=== PATIENT | female | born 1960 | race Caucasian/White ===

== ENCOUNTER → 2017-01-13 | Outpatient (REF) | payer BC ==
[2017-01-13 19:08] LABS: MEAN CORPUSCULAR HEMOGLOBIN 32.1 pg (27.0-33.0); MEAN CORPUSCULAR HGB CONC 34.5 g/dl (32.0-36.5); MEAN CORPUSCULAR VOLUME 93.2 fl (80.0-96.0); RED CELL DISTRIBUTION WIDTH 12.3 % (11.5-14.5); WHITE BLOOD COUNT 8.3 K/mm3 (4.0-10.0)
[2017-01-13 19:24] LABS: FOLATE 13.7 NG/ML
[2017-01-13 19:31] LABS: ALBUMIN 3.6 GM/DL (3.2-5.2); ALBUMIN/GLOBULIN RATIO 1.03 (1.00-1.93); ALKALINE PHOSPHATASE 100 U/L (45-117); ALT/SGPT 48 U/L (12-78); ANION GAP 7 MEQ/L (8-16); AST/SGOT 25 U/L (15-37); BILIRUBIN,TOTAL 0.3 MG/DL (0.2-1.0); BLOOD UREA NITROGEN 11 MG/DL (7-18); CALCIUM LEVEL 9.1 MG/DL (8.5-10.1); CARBON DIOXIDE LEVEL 32 MEQ/L (21-32); CHLORIDE LEVEL 104 MEQ/L (98-107); CREATININE FOR GFR 0.66 MG/DL (0.55-1.02); FREE T4 0.99 NG/DL (0.76-1.46); GLOMERULAR FILTRATION RATE > 60.0 (>51); GLUCOSE, FASTING 108 MG/DL (70-105); POTASSIUM SERUM 3.8 MEQ/L (3.5-5.1); SODIUM LEVEL 143 MEQ/L (136-145); TOTAL PROTEIN 7.1 GM/DL (6.4-8.2)
[2017-01-13 20:38] LABS: VITAMIN B12 LEVEL 1092 PG/ML
== END ==
LOC: M SFHCPLAZ 15:49
PROVIDERS: ATTEND Nurse Practitioner Family
DX: E53.8 Deficiency of other specified B group vitamins (principal); I10 Essential (primary) hypertension; E03.9 Hypothyroidism, unspecified; E55.9 Vitamin D deficiency, unspecified

== ENCOUNTER → 2017-02-23 | Outpatient (CLI) | payer BC ==
--- NOTE | 2017-02-23 12:55 | REPMRS ---
Patient History The patient states she had a clinical breast exam in 02/17 Patient is postmenopausal. Family history of colorectal cancer under age 50. Benign core biopsy of the left breast, 2009. Benign cyst aspiration of the left breast, 2003. Digital Woman Screen Mammo: February 23, 2017 - Exam #: [id number] Bilateral CC and MLO view(s) were taken. Technologist: Yocasta Elmore, Technologist Prior study comparison: January 09, 2015, digital woman screen mammo performed at [facility]. October 05, 2013, digital mammo diagnostic bilateral, performed at [facility]. April 08, 2010, bilateral screening mammogram, performed at [facility] FINDINGS: The breast tissue is heterogeneously dense. This may lower the sensitivity of mammography. There is a moderate amount of heterogeneously dense fibroglandular tissue which is fairly symmetric. There is no interval development of dominant mass, architectural distortion, or clustered microcalcification typical of malignancy. There has been no change in the appearance of the mammogram from the prior studies. ASSESSMENT: BI-RADS/ACR category 1 mammogram. Negative. Recommendation Routine screening mammogram of both breasts in 1 year (for women over age 40). This mammogram was interpreted with the aid of an FDA-approved computer-aided dectection system. Electronically Signed By: Doug Walsh MD 02/23/17 [id number]
== END ==
LOC: M WHC 10:39
PROVIDERS: ATTEND Nurse Practitioner Family
DX: Z12.31 Encounter for screening mammogram for malignant neoplasm of breast (principal); Z78.0 Asymptomatic menopausal state

== ENCOUNTER → 2017-02-23 | Outpatient (REF) | payer BC | LOC: M SFHCWAGY 13:01 | PROVIDERS: ATTEND Nurse Practitioner Family | DX: N39.46 Mixed incontinence (principal) ==

== ENCOUNTER → 2017-03-04 | Outpatient (REF) | payer BC ==
[2017-03-06 08:06] LABS: Candida species Positive (Negative); Gardnerella vaginalis Negative (Negative); Trichamonas vaginalis Negative (Negative)
== END ==
LOC: M SMT 13:11
PROVIDERS: ATTEND Specialist
DX: N76.0 Acute vaginitis (principal)

== ENCOUNTER → 2017-04-22 | Outpatient (CLI) | payer BC, MEDICAID ==
[~2017-04-22] MED LIST: BUPR300T34 PO; CHAN1PAK9 PO; DOXY100T16 PO; LEVO25TA5 PO; METO1TAB7 PO; OXYB5TAB10 PO; PANT40TA2 PO; VITA1CAP40 PO
--- NOTE | 2017-04-22 12:12 | REP ---
Thyroid ultrasound: Comparison is 08/14/2016. The patient has a right lobectomy, this is unchanged. The remaining left lobe is normal size measuring 3.9 x 2.0 x 1.8 cm. There are four left lobe nodules as follows: Mid pole 9.4 by 8.3 x 7.3 mm (previously 9.7 x 10.4 x 5.2 mm). Lower pole 1.5 x 1.9 x 1.1 cm (previously 1.6 x 0.9 x 0.9 cm). Upper pole 4.6 x 3.0 x 4.0 mm (previously 4.0 4.3 x 3.2 mm). Lower pole medially 7.3 by 5.9 x 6.3 mm (previously 3.6 x 2.7 x 2.5 mm). The lesion in the lower pole medially appears to have increased in size. The isthmus is thickened measuring 4.3 mm (4.0 mm previously). The thyroid parenchyma is mildly heterogeneous. Impression: Thyroid right lobectomy. Left lobe nodules as described. Signed by Yogesh Bonilla MD 04/22/2017 12:03 P
== END ==
LOC: M RAD 11:14
PROVIDERS: ATTEND Surgery
DX: E04.2 Nontoxic multinodular goiter (principal)

== ENCOUNTER → 2017-05-10 | Outpatient (CLI) | payer BC, MEDICAID ==
[2017-05-10 18:06] LABS: INR 0.81
[2017-05-10 18:08] LABS: MEAN CORPUSCULAR HGB CONC 34.9 g/dl (32.0-36.5); MEAN CORPUSCULAR VOLUME 91.7 fl (80.0-96.0); RED CELL DISTRIBUTION WIDTH 12.3 % (11.5-14.5); WHITE BLOOD COUNT 7.7 K/mm3 (4.0-10.0)
[2017-05-10 18:30] LABS: ANION GAP 8 MEQ/L (8-16); BLOOD UREA NITROGEN 13 MG/DL (7-18); CALCIUM LEVEL 8.6 MG/DL (8.5-10.1); CARBON DIOXIDE LEVEL 28 MEQ/L (21-32); CHLORIDE LEVEL 106 MEQ/L (98-107); CREATININE FOR GFR 0.71 MG/DL (0.55-1.02); GLOMERULAR FILTRATION RATE > 60.0 (>51); GLUCOSE, FASTING 89 MG/DL (70-105); POTASSIUM SERUM 3.8 MEQ/L (3.5-5.1); SODIUM LEVEL 142 MEQ/L (136-145)
--- NOTE | 2017-05-12 21:53 | ECGEPIP ---
Stationary ECG Study [facility] Test Date: 2017-05-10 Pat Name: ANTONIETTA MARCOS Department: Room: - Gender: F [employer]: [facility] : 1960 Requested By: JORGE Cosby Order Number: [id number] Reading MD: Reginald Herring Measurements Intervals [place] Rate: 85 P: 75 ME: 168 QRS: 17 QRSD: 88 T: 47 QT: 382 QTc: 457 Interpretive Statements SINUS RHYTHM POSSIBLE LEFT ATRIAL ENLARGEMENT NO PRIOR TRACING Electronically Signed On 05-12-2017 21:52:56 EDT by Reginald Herring
== END ==
LOC: M LAB 17:27
PROVIDERS: ATTEND Specialist
DX: N39.46 Mixed incontinence (principal); R31.29 Other microscopic hematuria; Z01.818 Encounter for other preprocedural examination

== ENCOUNTER → 2017-05-10 | Outpatient (REF) | payer BC | LOC: M SMT 13:02 | PROVIDERS: ATTEND Specialist | DX: R30.0 Dysuria (principal) ==

== ENCOUNTER 2017-05-17 11:52 | Day surgery (SDC) | payer BC, MEDICAID ==
[~2017-05-17] VITALS: Ht 162.6 cm; Wt 95.3 kg
[~2017-05-17 11:52] MED LIST changes: -DOXY100T16 PO
[2017-05-17] MEDS ORDERED: LR 1,000 ML IV ONE (12:15)
[2017-05-17] MEDS ORDERED: TRIMETHOPRIM/SULFAMETHOXAZOLE 80 MG in D5W 100 ML IV ONE (12:45)
[2017-05-17] MEDS ORDERED: DOXY100T16 PO (13:38)
[2017-05-17] MEDS ORDERED: ONDANSETRON 4MG/2ML VIAL (J2405) As Ordered ONE (15:08)
[2017-05-17] MEDS ORDERED: dexameTHASONE 4 MG/ML 1ML VIAL (J1100) As Ordered ONE (15:08)
[2017-05-17] MEDS ORDERED: PROPOFOL 200 MG/20 ML VIAL As Ordered ONE (15:08)
[2017-05-17] MEDS ORDERED: LIDOCAINE 2% INJ 100 MG/5 ML SDV (FOR ANES.) As Ordered ONE (15:08)
[2017-05-17] MEDS ORDERED: KETOROLAC 60 MG/2 ML VIAL (J1885) As Ordered ONE (15:08)
[2017-05-17] MEDS ORDERED: MIDAZOLAM INJ 2 MG/2 ML VIAL (J2250) As Ordered ONE (15:11)
[2017-05-17] MEDS ORDERED: fentaNYL 100 MCG/2 ML INJECTION (J3010) As Ordered ONE (15:11)
[2017-05-17] MEDS ORDERED: BUPIVACAINE/EPIN 0.25% 30 ML VIAL As Ordered ONE (15:26)
[2017-05-17] MEDS ORDERED: LIDOCAINE 2% 5ML JELLY UROJET As Ordered ONE (15:56)
[2017-05-17] MEDS ORDERED: BACITRACIN PWD 50,000 UNITS VIAL As Ordered ONE (16:05)
[2017-05-17] MEDS ORDERED: ONDANSETRON 4MG/2ML VIAL (J2405) IV PRN (16:45)
[2017-05-17] MEDS ORDERED: MORPHINE 2 MG/ML 1ML SYRINGE IV PRN (16:45)
[2017-05-17] MEDS ORDERED: LR 1,000 ML IV SCH (16:45)
[2017-05-17] MEDS ORDERED: PERCOCET 5MG/325MG TAB PO PRN (16:45)
[2017-05-17] MEDS ORDERED: METOCLOPRAMIDE INJ 10MG/2ML VIAL (J2765) IV PRN (16:45)
[2017-05-17] MEDS ORDERED: fentaNYL 100 MCG/2 ML INJECTION (J3010) IV PRN (16:45)
--- NOTE | 2017-05-17 18:35 | RO ---
DATE OF PROCEDURE: 05/17/2017 PREOPERATIVE DIAGNOSIS: Vaginal mesh extrusion, pain with urination, and urinary urgency and urge incontinence with mixed incontinence. POSTOPERATIVE DIAGNOSIS: Vaginal mesh extrusion, pain with urination, and urinary urgency and urge incontinence with mixed incontinence. PROCEDURE: Excision of extruded vaginal mesh, cystoscopy and hydrodistention urethral dilation. SURGEON: Dr. Christen Martinez ANESTHESIA: General. MEDICATIONS: Bactrim 80 mg intravenous (IV) preoperatively. FINDINGS: Bladder dilation showed detrusor instability with leakage and hyperemia but no significant glomerulations. INDICATIONS FOR PROCEDURE: The patient is a 57-year-old female with mesh extrusion that was felt on exam in the mid urethral area. She also has pain with urination and especially if she tried to hold her urine. She also complained of urinary urgency and urge incontinence with mixed incontinence most bothered by the urge component. After discussing all different options, alternatives, risks, and benefits it was decided to start her on Estrace and oxybutynin and to schedule her for a excision of the extruded mesh, cystoscopy and hydrodistention with the urethral dilation. All different options, alternatives, risks, and benefits were discussed and informed consent was obtained in both verbal and written form. The patient was brought into the operating room. Sequential compression devices were in place and she was given Bactrim DS preoperatively. General anesthesia was induced. She was then placed in the lithotomy position and careful attention was paid that her pressure points were well padded and protected. She was prepped and draped in the usual fashion. Next, a Buda retractor was placed and the mesh material was felt extruding underneath the mid urethra. 0.25% Marcaine with epinephrine was injected in the mid urethral area and then a midline incision was made. The mesh was felt and this area was excised with some of the skin. About a 1 inch piece of mesh was removed. The lateral mesh was left in place in order to give support for a leakage with stress maneuvers. At this point no more mesh was felt coming through the vaginal mucosa. Antibiotic irrigation was utilized and vaginal mucosa was then re-closed using a running locking #2-0 chromic suture. Next, a 21-Ukrainian cystoscope was inserted. The urethra was noted to be open without any evidence of lesions or strictures. At this point a hydrodistention was done and at about 750 mL, she started to have significant detrusor instability with leakage. I did try to keep her filled for approximately 10 minutes under gravity drainage. When i emptied the bladder there was hyperemia but no significant glomerulations. Next three urethra was dilated to a 30-Ukrainian then 2% lidocaine with 2% lidocaine jelly was placed in the urethra for postoperative discomfort. The patient was returned to the recovery room in stable condition.
== END 2017-05-17 18:15 | disposition home or self-care (01) ==
LOC: M SDC 11:52
PROVIDERS: ATTEND Specialist
DX: T83.711A Erosion of implanted vaginal mesh to surrounding organ or tissue, initial encounter (principal); R30.9 Painful micturition, unspecified; R39.15 Urgency of urination; I10 Essential (primary) hypertension; E03.9 Hypothyroidism, unspecified; K21.9 Gastro-esophageal reflux disease without esophagitis; F41.9 Anxiety disorder, unspecified; F32.9 Major depressive disorder, single episode, unspecified; F17.210 Nicotine dependence, cigarettes, uncomplicated; Z88.0 Allergy status to penicillin; Z79.899 Other long term (current) drug therapy
CPT/HCPCS: 57287; 57295; J1100; J1885; J2405; J3010

== ENCOUNTER → 2017-06-29 | Outpatient (REF) | payer BC ==
[~2017-06-29] MED LIST changes: +DOXY100T16 PO
[2017-06-29 14:43] LABS: BACTERIA, URINE SMALL AMOUNT; HYALINE CAST, URINE NONE SEEN /lpf (0-1); SQUAMOUS EPITHELIAL CELL URINE SMALL AMOUNT /hpf (SMALL AMT); WBC, URINE 15-20 /hpf (0-3)
[2017-06-29 14:44] LABS: MICROSCOPIC EXAM PERFORMED
[2017-07-02 00:08] LABS: Candida species Negative (Negative); Gardnerella vaginalis Negative (Negative); Trichamonas vaginalis Negative (Negative)
== END ==
LOC: M SMT 13:19
PROVIDERS: ATTEND Specialist
DX: R30.0 Dysuria (principal); N95.2 Postmenopausal atrophic vaginitis

== ENCOUNTER → 2017-07-21 | Outpatient (REF) | payer BC ==
[2017-07-21 13:52] LABS: BACTERIA, URINE SMALL AMOUNT; HYALINE CAST, URINE NONE SEEN /lpf (0-1); MICROSCOPIC EXAM PERFORMED; RBC, URINE NONE SEEN /hpf (0-3); SQUAMOUS EPITHELIAL CELL URINE MOD AMOUNT /hpf (SMALL AMT)
== END ==
LOC: M SMT 13:09
PROVIDERS: ATTEND Specialist
DX: R39.89 Other symptoms and signs involving the genitourinary system (principal)

== ENCOUNTER → 2017-07-27 | Outpatient (REF) | payer BC, MEDICAID ==
[2017-07-27 20:20] LABS: FOLATE 15.7 NG/ML; VITAMIN B12 LEVEL 936 PG/ML
[2017-07-27 20:25] LABS: ALBUMIN 3.8 GM/DL (3.2-5.2); ALBUMIN/GLOBULIN RATIO 1.03 (1.00-1.93); ALKALINE PHOSPHATASE 118 U/L (45-117); ALT/SGPT 40 U/L (12-78); ANION GAP 8 MEQ/L (8-16); AST/SGOT 17 U/L (15-37); BILIRUBIN,TOTAL 0.3 MG/DL (0.2-1.0); BLOOD UREA NITROGEN 14 MG/DL (7-18); CALCIUM LEVEL 8.9 MG/DL (8.5-10.1); CARBON DIOXIDE LEVEL 28 MEQ/L (21-32); CHLORIDE LEVEL 105 MEQ/L (98-107); CREATININE FOR GFR 0.92 MG/DL (0.55-1.02); FREE T4 1.01 NG/DL (0.76-1.46); GLOMERULAR FILTRATION RATE > 60.0 (>51); GLUCOSE, FASTING 112 MG/DL (70-105); POTASSIUM SERUM 3.9 MEQ/L (3.5-5.1); SODIUM LEVEL 141 MEQ/L (136-145); TOTAL PROTEIN 7.5 GM/DL (6.4-8.2)
== END ==
LOC: M SFHCPLAZ 15:23
PROVIDERS: ATTEND Nurse Practitioner Family
DX: I10 Essential (primary) hypertension (principal); E03.9 Hypothyroidism, unspecified; E55.9 Vitamin D deficiency, unspecified; E53.8 Deficiency of other specified B group vitamins

== ENCOUNTER → 2017-11-17 | Outpatient (CLI) | payer BC, MEDICAID | LOC: M RAD 08:42 | DX: F17.210 Nicotine dependence, cigarettes, uncomplicated (principal) ==

== ENCOUNTER → 2017-12-05 | Outpatient (CLI) | payer BC, MEDICAID ==
[2017-12-05 12:37] LABS: ALBUMIN 3.6 GM/DL (3.2-5.2); ALBUMIN/GLOBULIN RATIO 1.06 (1.00-1.93); ALKALINE PHOSPHATASE 111 U/L (45-117); ALT/SGPT 32 U/L (12-78); ANION GAP 5 MEQ/L (8-16); AST/SGOT 14 U/L (7-37); BILIRUBIN,TOTAL 0.4 MG/DL (0.2-1.0); BLOOD UREA NITROGEN 12 MG/DL (7-18); CALCIUM LEVEL 8.4 MG/DL (8.5-10.1); CARBON DIOXIDE LEVEL 31 MEQ/L (21-32); CHLORIDE LEVEL 105 MEQ/L (98-107); CREATININE FOR GFR 0.67 MG/DL (0.55-1.30); FREE T4 0.97 NG/DL (0.76-1.46); GLOMERULAR FILTRATION RATE > 60.0 (>51); GLUCOSE, FASTING 126 MG/DL (70-100); POTASSIUM SERUM 4.1 MEQ/L (3.5-5.1); SODIUM LEVEL 141 MEQ/L (136-145)
[2017-12-06 12:05] LABS: TOTAL 25(OH) VITAMIN D 43.5 NG/ML (30.0-100.0); VITAMIN B12 LEVEL 365 PG/ML (247-911)
[2017-12-06 12:06] LABS: FOLATE 17.3 NG/ML (>5.4)
== END ==
LOC: M LAB 11:33
DX: I10 Essential (primary) hypertension (principal); E03.9 Hypothyroidism, unspecified; E55.9 Vitamin D deficiency, unspecified; E53.8 Deficiency of other specified B group vitamins
CPT/HCPCS: 82746

== ENCOUNTER → 2018-03-23 | Outpatient (CLI) | payer BC, MEDICAID ==
[2018-03-23 13:21] LABS: ALBUMIN 3.5 GM/DL (3.2-5.2); ALBUMIN/GLOBULIN RATIO 0.92 (1.00-1.93); ALKALINE PHOSPHATASE 102 U/L (45-117); ALT/SGPT 42 U/L (12-78); ANION GAP 8 MEQ/L (8-16); AST/SGOT 22 U/L (7-37); BILIRUBIN,TOTAL 0.5 MG/DL (0.2-1.0); BLOOD UREA NITROGEN 14 MG/DL (7-18); CALCIUM LEVEL 8.7 MG/DL (8.5-10.1); CARBON DIOXIDE LEVEL 30 MEQ/L (21-32); CHLORIDE LEVEL 104 MEQ/L (98-107); CHOLESTEROL LEVEL 204 MG/DL (<200); CREATININE FOR GFR 0.67 MG/DL (0.55-1.30); FREE T4 0.95 NG/DL (0.76-1.46); GLOMERULAR FILTRATION RATE > 60.0 (>51); GLUCOSE, FASTING 122 MG/DL (70-100); HDL CHOLESTEROL 34 MG/DL (>40); LDL CHOLESTEROL 105.8 MG/DL (<100); NON-HDL-C 170 MG/DL; POTASSIUM SERUM 4.2 MEQ/L (3.5-5.1); SODIUM LEVEL 142 MEQ/L (136-145); TOTAL PROTEIN 7.3 GM/DL (6.4-8.2); TRIGLYCERIDES LEVEL 321 MG/DL (<150)
== END ==
LOC: M WUC 08:32
DX: I10 Essential (primary) hypertension (principal); E03.9 Hypothyroidism, unspecified

== ENCOUNTER → 2018-04-19 | Outpatient (CLI) | payer BC, MEDICAID | LOC: M RAD 11:05 | DX: E04.2 Nontoxic multinodular goiter (principal) | CPT/HCPCS: 76536 ==

== ENCOUNTER → 2018-07-07 | Outpatient (CLI) | payer BC, OTHER | LOC: M WHC 13:39 | DX: Z12.31 Encounter for screening mammogram for malignant neoplasm of breast (principal); N60.31 Fibrosclerosis of right breast; N60.32 Fibrosclerosis of left breast | CPT/HCPCS: 77067 ==

== ENCOUNTER → 2018-07-07 | Outpatient (REF) | payer BC, OTHER ==
[2018-07-09 15:28] LABS: HPV HYBRID CAPTURE II Negative (Negative)
== END ==
LOC: M SFHCWAGY 15:00
DX: Z12.72 Encounter for screening for malignant neoplasm of vagina (principal)
CPT/HCPCS: G0123

== ENCOUNTER → 2018-09-14 | Outpatient (CLI) | payer OTHER, BC ==
[2018-09-14 18:23] LABS: ALBUMIN 3.4 GM/DL (3.2-5.2); ALBUMIN/GLOBULIN RATIO 0.89 (1.00-1.93); ALKALINE PHOSPHATASE 113 U/L (45-117); ALT/SGPT 40 U/L (12-78); ANION GAP 6 MEQ/L (8-16); AST/SGOT 17 U/L (7-37); BILIRUBIN,TOTAL 0.3 MG/DL (0.2-1.0); BLOOD UREA NITROGEN 15 MG/DL (7-18); CALCIUM LEVEL 8.8 MG/DL (8.5-10.1); CARBON DIOXIDE LEVEL 30 MEQ/L (21-32); CHLORIDE LEVEL 106 MEQ/L (98-107); CREATININE FOR GFR 0.72 MG/DL (0.55-1.30); GLOMERULAR FILTRATION RATE > 60.0 (>51); GLUCOSE, FASTING 120 MG/DL (70-100); POTASSIUM SERUM 3.7 MEQ/L (3.5-5.1); SODIUM LEVEL 142 MEQ/L (136-145); TOTAL 25(OH) VITAMIN D 45.9 NG/ML (30.0-100.0); TOTAL PROTEIN 7.2 GM/DL (6.4-8.2)
[2018-09-14 19:03] LABS: ESTIMATED AVERAGE GLUCOSE 117 MG/DL (60-110); HEMOGLOBIN A1c 5.7 %
== END ==
LOC: M LAB 17:21
DX: I10 Essential (primary) hypertension (principal); E03.9 Hypothyroidism, unspecified; E88.81 Metabolic syndrome and other insulin resistance; E55.9 Vitamin D deficiency, unspecified
CPT/HCPCS: 84443

== ENCOUNTER 2018-11-01 06:50 | Day surgery (SDC) | payer BC, OTHER ==
[~2018-11-01] VITALS: Ht 162.6 cm; Wt 94.8 kg
[~2018-11-01 06:50] MED LIST changes: +BACT800T5 PO; +BUPR150T3 PO; +CALC600T31 PO; +CHAN1PAK13 PO; -CHAN1PAK9 PO; +MULT1TAB10 PO; -PANT40TA2 PO; +PANT40TA3 PO; +RANI150T PO; +VITA100067 PO; -VITA1CAP40 PO; +VITA1TAB22 PO; +VITA50005 PO
[2018-11-01] MEDS ORDERED: PROPOFOL 200 MG/20 ML VIAL As Ordered ONE ×2 (07:13→08:17)
[2018-11-01] MEDS ORDERED: LIDOCAINE 2% INJ 100 MG/5 ML SDV (FOR ANES.) As Ordered ONE (07:13)
--- NOTE | 2018-11-01 08:27 | ROOR ---
Patient Name: Salena Carlin Procedure Date: 11/01/2018 8:06 AM Date of : 1960 Age: 58 Room: [id number] Gender: Female Note Status: Finalized Procedure: Colonoscopy Indications: Screening for colorectal malignant neoplasm, inadequate bowel prep on last colonoscopy (more recent than 10 years ago), High risk colon cancer surveillance: Personal history of colonic polyps Providers: Binh JIANG MD Referring MD: Zaynab Gilbert NP Requesting Provider: Medicines: Monitored Anesthesia Care Complications: No immediate complications. Procedure: Pre-Anesthesia Assessment: - The heart rate, respiratory rate, oxygen saturations, blood pressure, adequacy of pulmonary ventilation, and response to care were monitored throughout the procedure. The Colonoscope was introduced through the anus and advanced to the terminal ileum, with identification of the appendiceal orifice and IC valve. The colonoscopy was performed without difficulty. The patient tolerated the procedure well. The quality of the bowel preparation was fair. Findings: The perianal and digital rectal examinations were normal. A 5 mm polyp was found in the sigmoid colon. The polyp was sessile. The polyp was removed with a cold snare. Resection and retrieval were complete. Small Internal Hemorrhoids. The exam was otherwise without abnormality on direct and retroflexion views. Impression: - Preparation of the colon was fair. - One 5 mm polyp in the sigmoid colon, removed with a cold snare. Resected and retrieved. - Small Internal Hemorrhoids. - The examination was otherwise normal on direct and retroflexion views. Recommendation: - Repeat colonoscopy in 5 years for surveillance. (Recommend additional prep with next colonoscopy.) Binh Jiang MD Binh JIANG MD 11/01/2018 8:26:48 AM This report has been signed electronically. Number of Addenda: 0 Note Initiated On: 11/01/2018 8:06 AM Estimated Blood Loss: Estimated blood loss: none.
[2018-11-01 08:50] VITALS: BP 210/95
== END 2018-11-01 08:53 | disposition home or self-care (01) ==
LOC: M OPP 06:50
PROVIDERS: ATTEND Internal Medicine Gastroenterology
DX: Z12.11 Encounter for screening for malignant neoplasm of colon (principal); Z86.010 Personal history of colon polyps; D12.5 Benign neoplasm of sigmoid colon; Z79.899 Other long term (current) drug therapy; Z88.0 Allergy status to penicillin; Z88.5 Allergy status to narcotic agent; F17.210 Nicotine dependence, cigarettes, uncomplicated

== ENCOUNTER → 2018-11-21 | Outpatient (CLI) | payer BC, OTHER ==
[2018-11-21 18:15] LABS: FREE T4 0.98 NG/DL (0.76-1.46); THYROID STIMULATING HORMONE 2.32 uIU/ML (0.358-3.740)
== END ==
LOC: M LAB 16:14
PROVIDERS: ATTEND Nurse Practitioner Family
DX: E03.9 Hypothyroidism, unspecified (principal)

== ENCOUNTER → 2018-12-25 | Outpatient (CLI) | payer BC, OTHER ==
--- NOTE | 2018-12-26 07:21 | REP ---
CERVICAL SPINE SERIES: Full cervical spine series was performed. C7 vertebral body is not optimally visualized due to high riding shoulders. It is grossly normal in height. The other cervical vertebral bodies are normal in height and are well aligned with normal cervical lordosis. There is no prevertebral soft tissue swelling. The disc spaces are well preserved. Metallic clips are seen in the right neck. I see no radiographic evidence of significant neural foraminal narrowing. IMPRESSION: Grossly unremarkable cervical spine series. Electronically Signed by Yogesh Avila MD 12/26/2018 09:24 A
--- NOTE | 2018-12-26 07:24 | REP ---
RIGHT SHOULDER, THREE VIEWS: There is no evidence of an acute fracture, dislocation or intrinsic bone disease. Joint spaces appear unremarkable. IMPRESSION: No fracture or dislocation. Electronically Signed by Yogesh Avila MD 12/26/2018 09:38 A
--- NOTE | 2018-12-26 07:25 | REP ---
LUMBOSACRAL SPINE: Seven views of lumbosacral spine are performed including lateral flexion and extension views. There is no fracture or dislocation. There is normal lumbar lordosis and alignment with no spondylolysis or spondylolisthesis. No subluxation is seen with flexion or extension. There is mild diffuse spurring. There is mild disc space narrowing at L5-S1 with sclerosis at the posterior facet joints at that level. The posterior elements are intact. IMPRESSION: Mild degenerative changes L5-S1. Electronically Signed by Yogesh Avila MD 12/26/2018 09:38 A
== END ==
LOC: M RAD 14:13
PROVIDERS: ATTEND Nurse Practitioner Family
DX: M51.87 Other intervertebral disc disorders, lumbosacral region (principal); M25.511 Pain in right shoulder; M54.2 Cervicalgia; M54.5 Low back pain

== ENCOUNTER 2019-01-13 07:29 | Outpatient (RCR) | payer BC, OTHER ==
[~2019-01-13 07:29] MED LIST changes: +CYAN100T5 PO; -VITA1TAB22 PO
== END 2019-01-31 ==
LOC: M PT 07:29
PROVIDERS: ATTEND Nurse Practitioner Family
DX: M54.2 Cervicalgia (principal)

== ENCOUNTER → 2019-04-05 | Outpatient (CLI) | payer BC, OTHER ==
[2019-04-05 08:37] LABS: BLOOD UREA NITROGEN 13 MG/DL (7-18); CALCIUM LEVEL 9.1 MG/DL (8.5-10.1); CARBON DIOXIDE LEVEL 31 MEQ/L (21-32); CHLORIDE LEVEL 107 MEQ/L (98-107); CHOLESTEROL LEVEL 178 MG/DL (<200); CHOLESTEROL RISK RATIO 6.357 (<5); CREATININE FOR GFR 0.69 MG/DL (0.55-1.30); FREE T4 0.98 NG/DL (0.76-1.46); GLOMERULAR FILTRATION RATE > 60.0 (>51); GLUCOSE, FASTING 115 MG/DL (70-100); HDL CHOLESTEROL 28 MG/DL (>40); LDL CHOLESTEROL 75 MG/DL (<100); NON-HDL-C 150 MG/DL; POTASSIUM SERUM 4.2 MEQ/L (3.5-5.1); SODIUM LEVEL 141 MEQ/L (136-145); TRIGLYCERIDES LEVEL 375 MG/DL (<150)
[2019-04-05 09:53] LABS: TOTAL 25(OH) VITAMIN D 48.2 NG/ML (30.0-100.0)
[2019-04-05 10:25] LABS: HEMOGLOBIN A1c 6.3 %
== END ==
LOC: M LAB 07:29
PROVIDERS: ATTEND Nurse Practitioner Family
DX: E03.9 Hypothyroidism, unspecified (principal); E88.81 Metabolic syndrome and other insulin resistance; E78.2 Mixed hyperlipidemia; I10 Essential (primary) hypertension; E55.9 Vitamin D deficiency, unspecified

== ENCOUNTER → 2019-07-10 | Outpatient (CLI) | payer BC, OTHER ==
--- NOTE | 2019-07-10 15:01 | REPMRS ---
Patient History The patient states she had a clinical breast exam in 07/2019. Patient is postmenopausal. Family history of prostate cancer at age 50 or over in brother. Benign core biopsy of the left breast, 2008. Benign core biopsy of the left breast, June 10, 2006. Cyst aspiration of the left breast, May 23, 2006. Benign core biopsy of the left breast, May 23, 2006. Benign cyst aspiration of the left breast, 2003. No Hormone Replacement Therapy 3D TOMOSYNTHESIS WAS PERFORMED. The [facility] [address] lifetime risk for breast cancer is 6.6%. Digital Woman Screen Mammo: July 10, 2019 - Exam #: [id number] Bilateral CC and MLO view(s) were taken. Technologist: Yocasta Elmore, Technologist Prior study comparison: July 07, 2018, bilateral digital woman screen mammo performed at [facility]. February 23, 2017, digital woman screen mammo performed at [facility]. FINDINGS: The breast tissue is heterogeneously dense. This may lower the sensitivity of mammography. There has been no change in the appearance of the mammogram from the prior studies. There is a moderate amount of residual fibroglandular tissue which is fairly symmetric. There is no interval development of dominant mass, areas of architectural distortion, or clustered microcalcification typical of malignancy. Assessment: BI-RADS/ACR category 1 mammogram. Negative Mammogram. Recommendation Routine screening mammogram in 1 year (for women over age 40). This mammogram was interpreted with the aid of an FDA-approved computer-aided dectection system. Electronically Signed By: Yogesh Avila MD 07/10/19 Krys
== END ==
LOC: M WHC 13:19
PROVIDERS: ATTEND Nurse Practitioner Family
DX: Z12.31 Encounter for screening mammogram for malignant neoplasm of breast (principal)

== ENCOUNTER → 2019-08-03 | Outpatient (CLI) | payer BC, OTHER ==
[~2019-08-03] MED LIST changes: -DOXY100T16 PO; +DOXY100T27 PO
[2019-08-03 09:25] LABS: ALBUMIN 3.7 GM/DL (3.2-5.2); ALT/SGPT 39 U/L (12-78); BILIRUBIN,TOTAL 0.5 MG/DL (0.2-1.0); BLOOD UREA NITROGEN 14 MG/DL (7-18); CALCIUM LEVEL 9.2 MG/DL (8.5-10.1); CARBON DIOXIDE LEVEL 31 MEQ/L (21-32); CHLORIDE LEVEL 105 MEQ/L (98-107); CHOLESTEROL LEVEL 204 MG/DL (<200); CREATININE FOR GFR 0.69 MG/DL (0.55-1.30); FREE T4 0.97 NG/DL (0.76-1.46); GLOMERULAR FILTRATION RATE > 60.0 (>51); GLUCOSE, FASTING 114 MG/DL (70-100); HDL CHOLESTEROL 34 MG/DL (>40); LDL CHOLESTEROL 92 MG/DL (<100); NON-HDL-C 170 MG/DL; POTASSIUM SERUM 4.3 MEQ/L (3.5-5.1); SODIUM LEVEL 141 MEQ/L (136-145); TOTAL PROTEIN 7.7 GM/DL (6.4-8.2); TRIGLYCERIDES LEVEL 392 MG/DL (<150)
[2019-08-03 09:28] LABS: MALB URINE SIEMENS 26.8 MG/L; MAU/CREAT RATIO 15.7 MCG/MG (0.0-30.0)
[2019-08-03 09:45] LABS: HEMOGLOBIN A1c 5.9 %
== END ==
LOC: M LAB 07:32
PROVIDERS: ATTEND Nurse Practitioner Family
DX: E78.2 Mixed hyperlipidemia (principal); E03.9 Hypothyroidism, unspecified; R73.03 Prediabetes

== ENCOUNTER → 2019-08-23 | Outpatient (CLI) | payer BC, OTHER ==
--- NOTE | 2019-08-24 10:52 | REP ---
CHEST CT WITHOUT CONTRAST: HISTORY: Low dose screening exam. Nicotine dependence. Comparison screening CT study November 17, 2017. CT FINDINGS: The previously noted left upper lobe nodule is again seen. On today's study it measures 5 mm in greatest diameter. November 17, 2017 prior study measurement was 3 mm. It appears to have enlarged somewhat. No other pulmonary nodule is appreciated. Study is otherwise unremarkable. IMPRESSION: 5 mm nodule left upper lobe, increased in size from the prior study when it measured 3 mm. Lung BIRADS category 4A. 5-hh-5-month followup CT study suggested. Electronically Signed by Jonnie Walsh MD 08/24/2019 11:33 A
== END ==
LOC: M RAD 16:26
PROVIDERS: ATTEND Nurse Practitioner Family
DX: Z12.2 Encounter for screening for malignant neoplasm of respiratory organs (principal); F17.210 Nicotine dependence, cigarettes, uncomplicated; R91.1 Solitary pulmonary nodule

== ENCOUNTER → 2019-11-17 | Outpatient (CLI) | payer OTHER ==
[~2019-11-17] MED LIST changes: -BUPR300T34 PO; +BUPR300T92 PO
--- NOTE | 2019-11-17 15:24 | REP ---
Clinical: Pulmonary nodule. Technique: Axial noncontrast images from the thoracic inlet to the upper abdomen with coronal and sagittal re-formations. Comparison: 08/23/2019, 11/17/2017. Findings: 5 mm noncalcified nodule in the anterior left upper lobe remains stable when compared to 08/23/2019, but may be slightly increased when compared to 11/17/2017. New area of presumed atelectasis in the right middle lobe. Underlying chronic stable changes. No new nodule. No effusion. No pneumothorax. Tracheobronchial tree is patent. No obvious adenopathy. Mediastinum demonstrates stable atherosclerotic changes to the thoracic aorta and coronary arteries without aortic aneurysm or cardiomegaly. No pericardial effusion. Skeletal structures without focal osseous abnormality. Impression: 1. Noncalcified nodule in the left upper lobe measures 5 mm and may be minimally increased when compared to 2017. 2. New area of suspected atelectasis in the right middle lobe should be correlated with physical examination and auscultation. Electronically Signed by Jethro Meadows MD 11/17/2019 03:16 P
== END ==
LOC: M RAD 14:37
PROVIDERS: ATTEND Nurse Practitioner Family
DX: R91.1 Solitary pulmonary nodule (principal)

== ENCOUNTER → 2019-11-18 | Outpatient (CLI) | payer OTHER ==
[2019-11-18 10:57] LABS: HEMOGLOBIN A1c 6.1 %
[2019-11-18 11:18] LABS: ALBUMIN 3.6 GM/DL (3.2-5.2); ALT/SGPT 37 U/L (12-78); BILIRUBIN,TOTAL 0.3 MG/DL (0.2-1.0); BLOOD UREA NITROGEN 11 MG/DL (7-18); CALCIUM LEVEL 8.9 MG/DL (8.5-10.1); CARBON DIOXIDE LEVEL 34 MEQ/L (21-32); CHLORIDE LEVEL 105 MEQ/L (98-107); CHOLESTEROL LEVEL 134 MG/DL (<200); CHOLESTEROL RISK RATIO 5.153 (<5); CREATININE FOR GFR 0.67 MG/DL (0.55-1.30); GLOMERULAR FILTRATION RATE > 60.0 (>51); GLUCOSE, FASTING 100 MG/DL (70-100); HDL CHOLESTEROL 26 MG/DL (>40); LDL CHOLESTEROL 66 MG/DL (<100); NON-HDL-C 108 MG/DL; POTASSIUM SERUM 4.2 MEQ/L (3.5-5.1); SODIUM LEVEL 142 MEQ/L (136-145); TOTAL PROTEIN 7.3 GM/DL (6.4-8.2); TRIGLYCERIDES LEVEL 209 MG/DL (<150)
[2019-11-18 11:19] LABS: MALB URINE SIEMENS 11.3 MG/L; MAU/CREAT RATIO 9.7 MCG/MG (0.0-30.0)
== END ==
LOC: M LAB 09:36
PROVIDERS: ATTEND Nurse Practitioner Family
DX: I10 Essential (primary) hypertension (principal); E78.2 Mixed hyperlipidemia; E03.9 Hypothyroidism, unspecified; R73.03 Prediabetes

== ENCOUNTER → 2019-12-21 | Outpatient (CLI) | payer OTHER ==
--- NOTE | 2019-12-26 15:59 | SLEEPCENT ---
DATE OF PROCEDURE: 12/21/2019 ORDERED BY: Binh Lozano DO Nocturnal polysomnography was performed for evaluation of sleep physiology in this patient with a history of excessive daytime somnolence and abnormal nocturnal recording oximetry tracing who has comorbidities of hypertension. 7 hours and 30 minutes of data were reviewed. There were 384.5 minutes of sleep identified. Sleep latency was mildly prolonged at 19.5 minutes. Rapid eye movement (REM) latency also mildly prolonged at 105 minutes. Sleep architecture was fair with fragmentation early in the study. There were 4 REM cycles noted. Overall sleep efficiency was 86.5%. The patient's electrocardiogram showed a sinus rhythm with an average heart rate of 90 beats per minute. Electroencephalogram (EEG) showed normal waveforms for awake and sleep. There were 64 respiratory events identified of 10 seconds in duration or greater for an apnea-hypopnea index of 10. The events were primarily obstructive not exclusive to sleep stage nor body posture. Arousals from respiratory events occurred 10.5 times per hour and oxygen desaturations were seen to 69%. There was some activity in the limb leads. No trains of events. Limb movement arousal index 5.5. IMPRESSION: Obstructive sleep apnea syndrome (G47.33). Apnea-hypopnea index 10. RECOMMENDATIONS: The patient should be encouraged to return to the sleep disorder center for pressure therapy. In the interim, alcohol and sedative avoidance should be practiced and caution exercised during operation of motor vehicles.
== END ==
LOC: M SLEEP 19:39
PROVIDERS: ATTEND Internal Medicine Pulmonary Disease
DX: G47.30 Sleep apnea, unspecified (principal)

== ENCOUNTER → 2020-02-06 | Outpatient (REF) | payer OTHER ==
[2020-02-06 16:08] LABS: HEMOGLOBIN A1c 6.1 %
[2020-02-06 16:33] LABS: BLOOD UREA NITROGEN 14 MG/DL (7-18); CALCIUM LEVEL 9.6 MG/DL (8.5-10.1); CARBON DIOXIDE LEVEL 31 MEQ/L (21-32); CHLORIDE LEVEL 104 MEQ/L (98-107); CREATININE FOR GFR 0.64 MG/DL (0.55-1.30); FREE T4 1.07 NG/DL (0.76-1.46); GLOMERULAR FILTRATION RATE > 60.0 (>51); GLUCOSE, FASTING 113 MG/DL (70-100); SODIUM LEVEL 139 MEQ/L (136-145)
== END ==
LOC: M PLALAB 15:29
PROVIDERS: ATTEND Nurse Practitioner Family
DX: E03.9 Hypothyroidism, unspecified (principal); R73.03 Prediabetes; I10 Essential (primary) hypertension

== ENCOUNTER → 2020-07-18 | Outpatient (REF) | payer OTHER ==
[~2020-07-18] MED LIST changes: +CYAN100T4 PO; -CYAN100T5 PO; +PANT40TA29 PO; -PANT40TA3 PO
[2020-07-18 14:24] LABS: ALBUMIN 3.6 GM/DL (3.2-5.2); ALT/SGPT 43 U/L (12-78); BILIRUBIN,TOTAL 0.6 MG/DL (0.2-1.0); BLOOD UREA NITROGEN 15 MG/DL (7-18); CALCIUM LEVEL 9.4 MG/DL (8.5-10.1); CARBON DIOXIDE LEVEL 31 MEQ/L (21-32); CHLORIDE LEVEL 108 MEQ/L (98-107); CHOLESTEROL LEVEL 147 MG/DL (<200); CHOLESTEROL RISK RATIO 4.593 (<5); CREATININE FOR GFR 0.77 MG/DL (0.55-1.30); FREE T4 1.03 NG/DL (0.76-1.46); GLOMERULAR FILTRATION RATE > 60.0 (>51); GLUCOSE, FASTING 108 MG/DL (70-100); HDL CHOLESTEROL 32 MG/DL (>40); LDL CHOLESTEROL 72 MG/DL (<100); NON-HDL-C 115 MG/DL; POTASSIUM SERUM 4.5 MEQ/L (3.5-5.1); SODIUM LEVEL 141 MEQ/L (136-145); TOTAL PROTEIN 7.4 GM/DL (6.4-8.2); TRIGLYCERIDES LEVEL 215 MG/DL (<150)
[2020-07-18 14:32] LABS: HEMOGLOBIN A1c 5.6 %
[2020-07-18 15:03] LABS: MALB URINE SIEMENS 25.4 MG/L; MAU/CREAT RATIO 16.7 MCG/MG (0.0-30.0)
[2020-07-18 16:10] LABS: TOTAL 25(OH) VITAMIN D 53.4 NG/ML (30.0-100.0)
== END ==
LOC: M PLALAB 09:15
PROVIDERS: ATTEND Nurse Practitioner Family
DX: I10 Essential (primary) hypertension (principal); E03.9 Hypothyroidism, unspecified; R73.03 Prediabetes; E78.2 Mixed hyperlipidemia; E55.9 Vitamin D deficiency, unspecified

== ENCOUNTER → 2020-07-22 | Outpatient (CLI) | payer OTHER ==
--- NOTE | 2020-07-22 15:28 | REP ---
INDICATION: OTHER NON SPECIFIC ABNORMAL FINDING OF LUNG FIELD.. COMPARISON: And 11/07/2013. TECHNIQUE: One hundred twenty-eight slice low dose helical CT scanning was obtained throughout the thorax without intravenous contrast along with sagittal and coronal reconstructions. FINDINGS: The mediastinum and pulmonary domingo are unchanged. There is no mass or adenopathy. There are no pleural or pericardial effusions. There is no change in the appearance of the imaged upper abdomen. There is cholelithiasis. There is diffuse fatty infiltration of the liver. Bone window technique throughout the examination shows the osseous structures to be stable and intact. Evaluation of the lung jim shows no change in the 5 mm size left upper lobe nodule. The patchy opacities seen previously in the right Middle lobe have cleared. No new abnormal nodules, masses, or opacities have developed. IMPRESSION: 1. Resolved right middle lobe patchy opacities. 2. Stable left upper lobe 5 mm sized nodule. 3. Lung rads category 2 exam 4. Fatty infiltration of the liver. 5. Cholelithiasis. <Electronically signed by Pierre Hernandez > 07/22/20 [id number]
== END ==
LOC: M RAD 14:08
PROVIDERS: ATTEND Internal Medicine Pulmonary Disease
DX: R91.8 Other nonspecific abnormal finding of lung field (principal)

== ENCOUNTER → 2020-11-27 | Outpatient (CLI) | payer OTHER ==
[~2020-11-27] MED LIST changes: -BUPR150T3 PO; +BUPR150T4 PO
--- NOTE | 2020-11-27 11:23 | REP ---
INDICATION: NICOTINE DEPENDENCE. COMPARISON: CT 11/17/2019, 07/22/2020, 08/23/2019. TECHNIQUE: Low-dose lung CT screening protocol with 3 mm slice thickness in lung window settings reviewed. FINDINGS: There is a 4.4 mm nodule posteriorly in the left upper lung zone as seen on previous studies. I believe it is in the superior segment of the left lower lobe and is grossly unchanged for 15 months. Is a 5 mm nodule anteriorly in the left upper lobe on image 17 in this is unchanged. No calcification associated with it. See no other left lung nodules, pleural thickening, calcified pleural plaque or effusions. The right lung is without an acute infiltrate or pulmonary nodule. No pleural thickening, pleural plaque/calcification or acute infiltrate. No bronchiectasis. IMPRESSION: Lung rads category 2 benign, benign finding on examination. Patients with this category of finding have less than 1% chance of malignancy at the time of the examination. Recommend annual lung screening CT for patients at higher risk of lung malignancy. <Electronically signed by Tk Preston > 11/27/20 [id number]
== END ==
LOC: M RAD 10:11
PROVIDERS: ATTEND Nurse Practitioner Family
DX: Z12.2 Encounter for screening for malignant neoplasm of respiratory organs (principal); F17.210 Nicotine dependence, cigarettes, uncomplicated

== ENCOUNTER → 2020-12-27 | Outpatient (CLI) | payer OTHER ==
[~2020-12-27] MED LIST changes: +BUPR150T12 PO; -BUPR150T4 PO
--- NOTE | 2020-12-27 16:34 | REPMRS ---
Patient History The patient states she had a clinical breast exam in August 2020. Family history of prostate cancer at age 50 or over in brother. Benign core biopsy of the left breast, 2008. Benign core biopsy of the left breast, June 10, 2006. Cyst aspiration of the left breast, May 23, 2006. Benign core biopsy of the left breast, May 23, 2006. Benign cyst aspiration of the left breast, 2003. No Hormone Replacement Therapy Digital Woman Screen Mammo: December 27, 2020 - Exam #: [id number] Bilateral CC and MLO view(s) were taken. Technologist: Lisa Solano Technologist Prior study comparison: July 10, 2019, bilateral digital woman screen mammo performed at [facility]. July 07, 2018, bilateral digital woman screen mammo performed at [facility]. February 23, 2017, digital woman screen mammo performed at [facility]. FINDINGS: There are scattered fibroglandular densities. The Volpara volumetric breast density category is:B. There has been no change in the appearance of the mammogram from the prior studies. There is a mild amount of scattered fibroglandular density which is fairly symmetric. There is no interval development of dominant mass, architectural distortion, or grouped microcalcification suggestive of malignancy. 3-D tomosynthesis shows no additional findings. Assessment: BI-RADS/ACR category 1 mammogram. Negative Mammogram. Recommendation Routine screening mammogram of both breasts in 1 year (for women over age 40). This patient's [facility] Lifetime Breast Cancer Risk is estimated at 6.5 %. This mammogram was interpreted with the aid of an FDA-approved computer-aided dectection system. Electronically Signed By: Doug Walsh MD 12/27/20 [id number]
== END ==
LOC: M WHC 12:54
PROVIDERS: ATTEND Nurse Practitioner Family
DX: Z12.31 Encounter for screening mammogram for malignant neoplasm of breast (principal)

== ENCOUNTER → 2021-03-27 | Outpatient (REF) | payer OTHER ==
[2021-03-27 16:06] LABS: HEMOGLOBIN A1c 5.8 %
[2021-03-27 16:15] LABS: ALBUMIN 3.6 GM/DL (3.2-5.2); ALT/SGPT 55 U/L (12-78); BILIRUBIN,TOTAL 0.5 MG/DL (0.2-1.0); BLOOD UREA NITROGEN 10 MG/DL (7-18); CALCIUM LEVEL 9.3 MG/DL (8.5-10.1); CARBON DIOXIDE LEVEL 30 MEQ/L (21-32); CHLORIDE LEVEL 108 MEQ/L (98-107); CREATININE FOR GFR 0.58 MG/DL (0.55-1.30); FREE T4 1.03 NG/DL (0.76-1.46); GLOMERULAR FILTRATION RATE > 60.0 (>51); GLUCOSE, FASTING 91 MG/DL (70-100); SODIUM LEVEL 141 MEQ/L (136-145); TOTAL PROTEIN 7.1 GM/DL (6.4-8.2)
[2021-03-27 16:16] LABS: TOTAL 25(OH) VITAMIN D 31.4 NG/ML (30.0-100.0)
[2021-03-27 16:17] LABS: CREATININE, URINE 69.8 MG/DL; MALB URINE SIEMENS 5.9 MG/L; MAU/CREAT RATIO 8.4 MCG/MG (0.0-30.0)
== END ==
LOC: M SFHCPLAZ 12:07
PROVIDERS: ATTEND Nurse Practitioner Family
DX: I10 Essential (primary) hypertension (principal); E03.9 Hypothyroidism, unspecified; R73.03 Prediabetes; E55.9 Vitamin D deficiency, unspecified

== ENCOUNTER → 2021-07-31 | Outpatient (CLI) | payer OTHER ==
[2021-07-31 15:47] LABS: ALBUMIN 3.8 GM/DL (3.2-5.2); ALT/SGPT 61 U/L (12-78); BILIRUBIN,TOTAL 0.5 MG/DL (0.2-1.0); BLOOD UREA NITROGEN 16 MG/DL (7-18); CALCIUM LEVEL 10.2 MG/DL (8.5-10.1); CARBON DIOXIDE LEVEL 34 MEQ/L (21-32); CHLORIDE LEVEL 106 MEQ/L (98-107); CHOLESTEROL LEVEL 170 MG/DL (<200); CHOLESTEROL RISK RATIO 4.857 (<5); CREATININE FOR GFR 0.74 MG/DL (0.55-1.30); FREE T4 1.03 NG/DL (0.76-1.46); GLOMERULAR FILTRATION RATE > 60.0 (>51); GLUCOSE, FASTING 97 MG/DL (70-100); HDL CHOLESTEROL 35 MG/DL (>40); LDL CHOLESTEROL 88 MG/DL (<100); NON-HDL-C 135 MG/DL; POTASSIUM SERUM 4.5 MEQ/L (3.5-5.1); SODIUM LEVEL 139 MEQ/L (136-145); TOTAL PROTEIN 7.7 GM/DL (6.4-8.2); TRIGLYCERIDES LEVEL 236 MG/DL (<150)
[2021-07-31 15:48] LABS: TOTAL 25(OH) VITAMIN D 34.5 NG/ML (30.0-100.0)
[2021-07-31 16:09] LABS: HEMOGLOBIN A1c 5.8 %
== END ==
LOC: M PLALAB 12:42
PROVIDERS: ATTEND Nurse Practitioner Family
DX: E78.2 Mixed hyperlipidemia (principal); E03.9 Hypothyroidism, unspecified; E55.9 Vitamin D deficiency, unspecified; R73.03 Prediabetes

== ENCOUNTER → 2021-09-05 | Outpatient (CLI) | payer OTHER ==
--- NOTE | 2021-09-05 14:35 | REP ---
INDICATION: ADHESIVE CAPSULITIS. COMPARISON: None. TECHNIQUE: Six views FINDINGS: The acromioclavicular and glenohumeral relationships are within normal limits. There is no acute fracture, dislocation, or subluxation. IMPRESSION: Within normal limits <Electronically signed by Pierre Hernandez > 09/05/21 [id number]
== END ==
LOC: M SOG 13:27
PROVIDERS: ATTEND Orthopaedic Surgery Sports Medicine
DX: M75.02 Adhesive capsulitis of left shoulder (principal)

== ENCOUNTER 2021-09-11 14:45 | Outpatient (RCR) | payer OTHER | END 2021-10-03 | LOC: M PT 14:45 | PROVIDERS: ATTEND Orthopaedic Surgery Sports Medicine | DX: M75.02 Adhesive capsulitis of left shoulder (principal) ==

== ENCOUNTER → 2021-10-13 | Outpatient (CLI) | payer OTHER | LOC: M LABSMTC 12:49 | PROVIDERS: ATTEND Pediatrics | DX: Z11.52 Encounter for screening for COVID-19 (principal) ==

== ENCOUNTER → 2022-01-02 | Outpatient (CLI) | payer OTHER | LOC: M RAD 08:10 | PROVIDERS: ATTEND Internal Medicine Pulmonary Disease | DX: Z12.2 Encounter for screening for malignant neoplasm of respiratory organs (principal); Z87.891 Personal history of nicotine dependence; R91.8 Other nonspecific abnormal finding of lung field ==

== ENCOUNTER → 2022-09-22 | Outpatient (CLI) | payer OTHER | LOC: M WHC 16:07 | PROVIDERS: ATTEND Internal Medicine Hematology | DX: Z12.31 Encounter for screening mammogram for malignant neoplasm of breast (principal) ==

== ENCOUNTER → 2022-12-23 | Outpatient (CLI) | payer OTHER ==
[2022-12-23 18:13] LABS: HEMATOCRIT 43.2 % (36.0-47.0); HEMOGLOBIN 14.2 g/dl (12.0-15.5); MEAN CORPUSCULAR HEMOGLOBIN 31.3 pg (27.0-33.0); MEAN CORPUSCULAR HGB CONC 32.9 g/dl (32.0-36.5); MEAN CORPUSCULAR VOLUME 95.2 fl (80.0-96.0); PLATELET COUNT, AUTOMATED 181 10^3/uL (150-450); RED BLOOD COUNT 4.54 10^6/uL (4.00-5.40); WHITE BLOOD COUNT 8.6 10^3/uL (4.0-10.0)
[2022-12-23 18:40] LABS: CREATININE, URINE 121.8 MG/DL; MAU/CREAT RATIO 9.8 MCG/MG (0.0-30.0)
[2022-12-23 18:42] LABS: ALBUMIN 3.7 G/DL (3.2-5.2); ALKALINE PHOSPHATASE 106 U/L (46-116); ALT/SGPT 39 U/L (7.0-40); AST/SGOT 18 U/L (<34); BILIRUBIN,TOTAL 0.3 MG/DL (0.3-1.2); BLOOD UREA NITROGEN 14 MG/DL (9-23); CALCIUM LEVEL 9.3 MG/DL (8.3-10.6); CARBON DIOXIDE LEVEL 30 MMOL/L (20-31); CHLORIDE LEVEL 105 MMOL/L (98-107); CHOLESTEROL LEVEL 201 MG/DL (<200); CHOLESTEROL RISK RATIO 5.89 (<5); CREATININE FOR GFR 0.67 MG/DL (0.55-1.30); GLOMERULAR FILTRATION RATE > 60.0 (>45); GLUCOSE, FASTING 87 MG/DL (74-106); HDL CHOLESTEROL 34.1 MG/DL (>40); NON-HDL-C 166.9 MG/DL; POTASSIUM SERUM 4.1 MMOL/L (3.5-5.1); SODIUM LEVEL 142 MMOL/L (136-145); TOTAL 25(OH) VITAMIN D 29.6 NG/ML (20.0-100.0); TRIGLYCERIDES LEVEL 481 MG/DL (<150)
[2022-12-23 18:43] LABS: THYROID STIMULATING HORMONE 4.535 uIU/ML (0.55-4.78); VITAMIN B12 LEVEL 1253 PG/ML (211-911)
[2022-12-23 18:49] LABS: HEMOGLOBIN A1c 5.3 % (4.0-6.0)
== END ==
LOC: M PLALAB 14:51
PROVIDERS: ATTEND Internal Medicine Hematology
DX: R73.01 Impaired fasting glucose (principal)

== ENCOUNTER → 2023-02-19 | Outpatient (CLI) | payer OTHER | LOC: M RAD 14:19 | PROVIDERS: ATTEND Internal Medicine Pulmonary Disease | DX: Z12.2 Encounter for screening for malignant neoplasm of respiratory organs (principal); F17.210 Nicotine dependence, cigarettes, uncomplicated; R91.8 Other nonspecific abnormal finding of lung field ==

== ENCOUNTER → 2023-05-19 | Outpatient (CLI) | payer OTHER | LOC: M RAD 09:50 | PROVIDERS: ATTEND Internal Medicine Pulmonary Disease | DX: J44.9 Chronic obstructive pulmonary disease, unspecified (principal); E89.0 Postprocedural hypothyroidism; I25.10 Atherosclerotic heart disease of native coronary artery without angina pectoris; K80.20 Calculus of gallbladder without cholecystitis without obstruction ==

== ENCOUNTER → 2023-06-26 | Outpatient (CLI) | payer OTHER ==
[2023-06-26 12:01] LABS: HEMATOCRIT 44.5 % (36.0-47.0); MEAN CORPUSCULAR HEMOGLOBIN 31.3 pg (27.0-33.0); MEAN CORPUSCULAR HGB CONC 33.7 g/dl (32.0-36.5); MEAN CORPUSCULAR VOLUME 92.9 fl (80.0-96.0); PLATELET COUNT, AUTOMATED 199 10^3/uL (150-450); RED BLOOD COUNT 4.79 10^6/uL (4.00-5.40); WHITE BLOOD COUNT 10.7 10^3/uL (4.0-10.0)
[2023-06-26 12:22] LABS: HEMOGLOBIN A1c 5.2 % (4.0-6.0)
[2023-06-26 12:25] LABS: C REACTIVE PROTEIN QUANTITATIV < 0.40 MG/DL (<1.0)
[2023-06-26 12:26] LABS: CREATININE, URINE 104.2 MG/DL; MAU/CREAT RATIO 7.6 MCG/MG (0.0-30.0)
[2023-06-26 12:27] LABS: ALBUMIN 3.8 G/DL (3.2-5.2); ALKALINE PHOSPHATASE 104 U/L (46-116); ALT/SGPT 43 U/L (7.0-40); AST/SGOT 20 U/L (<34); BILIRUBIN,TOTAL 0.6 MG/DL (0.3-1.2); BLOOD UREA NITROGEN 19 MG/DL (9-23); CALCIUM LEVEL 9.3 MG/DL (8.3-10.6); CARBON DIOXIDE LEVEL 31 MMOL/L (20-31); CHLORIDE LEVEL 107 MMOL/L (98-107); CHOLESTEROL LEVEL 189 MG/DL (<200); CHOLESTEROL RISK RATIO 4.47 (<5); CREATININE FOR GFR 0.58 MG/DL (0.55-1.30); GLOMERULAR FILTRATION RATE > 60.0 (>45); GLUCOSE, FASTING 109 MG/DL (74-106); HDL CHOLESTEROL 42.2 MG/DL (>40); NON-HDL-C 146.8 MG/DL; POTASSIUM SERUM 4.4 MMOL/L (3.5-5.1); SODIUM LEVEL 142 MMOL/L (136-145); TOTAL PROTEIN 7.2 G/DL (5.7-8.2); TRIGLYCERIDES LEVEL 139 MG/DL (<150)
[2023-06-26 12:29] LABS: THYROID STIMULATING HORMONE 1.858 uIU/ML (0.55-4.78); TOTAL 25(OH) VITAMIN D 30.6 NG/ML (20.0-100.0); VITAMIN B12 LEVEL 778 PG/ML (211-911)
[2023-06-26 12:30] LABS: FREE T4 1.05 NG/DL (0.89-1.76)
== END ==
LOC: M LAB 11:35
PROVIDERS: ATTEND Internal Medicine Hematology
DX: Z13.1 Encounter for screening for diabetes mellitus (principal)

== ENCOUNTER → 2024-01-13 | Outpatient (CLI) | payer OTHER ==
[~2024-01-13] MED LIST changes: -OXYB5TAB10 PO; +OXYB5TAB14 PO
== END ==
LOC: M RAD 15:27
PROVIDERS: ATTEND Nurse Practitioner
DX: E04.2 Nontoxic multinodular goiter (principal)

== ENCOUNTER → 2024-04-27 | Outpatient (CLI) | payer OTHER ==
[~2024-04-27] MED LIST changes: +BUPR-597 PO; -BUPR300T92 PO; +CALC600C3 PO; +CALC600T60 PO; +CETI10TA4 PO; +CYAN500T14 PO; +EZET10TA21 PO; +SYNT50TA PO; +THERTAB52 PO; +VITA100093 PO; +WELLTAB38 PO; +WELLTAB40 PO
[2024-04-27 13:34] LABS: BASO # 0.1 10^3/uL (0.0-0.2); BASO % 0.8 % (0.0-1.0); EOS # 0.2 10^3/uL (0.0-0.5); EOS % 2.2 % (0.0-3.0); HEMATOCRIT 40.6 % (36.0-47.0); HEMOGLOBIN 13.6 g/dl (12.0-15.5); LYMPH # 1.6 10^3/uL (1.5-5.0); LYMPH % 21.7 % (24.0-44.0); MEAN CORPUSCULAR HGB CONC 33.5 g/dl (32.0-36.5); MEAN CORPUSCULAR VOLUME 95.5 fl (80.0-96.0); MONO # 0.7 10^3/uL (0.0-0.8); MONO % 9.6 % (2.0-8.0); NEUTROPHILS # 4.7 10^3/uL (1.5-8.5); NEUTROPHILS % 65.3 % (36.0-66.0); PLATELET COUNT, AUTOMATED 170 10^3/uL (150-450); RED BLOOD COUNT 4.25 10^6/uL (4.00-5.40); WHITE BLOOD COUNT 7.2 10^3/uL (4.0-10.0)
[2024-04-27 14:01] LABS: CREATININE, URINE 184.9 MG/DL; MAU/CREAT RATIO 8.1 MCG/MG (0.0-30.0)
[2024-04-27 14:03] LABS: ALBUMIN 3.8 G/DL (3.2-5.2); ALKALINE PHOSPHATASE 109 U/L (46-116); ALT/SGPT 93 U/L (7.0-40); AST/SGOT 56 U/L (<34); BILIRUBIN,TOTAL 0.6 MG/DL (0.3-1.2); BLOOD UREA NITROGEN 15 MG/DL (9-23); CALCIUM LEVEL 9.3 MG/DL (8.3-10.6); CARBON DIOXIDE LEVEL 29 MMOL/L (20-31); CHLORIDE LEVEL 105 MMOL/L (98-107); CHOLESTEROL LEVEL 185 MG/DL (<200); CHOLESTEROL RISK RATIO 5.74 (<5); CREATININE FOR GFR 0.62 MG/DL (0.55-1.30); GLOMERULAR FILTRATION RATE > 60.0 (>45); GLUCOSE, FASTING 194 MG/DL (74-106); HDL CHOLESTEROL 32.2 MG/DL (>40); LDL CHOLESTEROL 101.6 MG/DL (<100); NON-HDL-C 152.8 MG/DL; POTASSIUM SERUM 4.2 MMOL/L (3.5-5.1); SODIUM LEVEL 140 MMOL/L (136-145); TOTAL PROTEIN 7.2 G/DL (5.7-8.2); TRIGLYCERIDES LEVEL 256 MG/DL (<150)
[2024-04-27 14:05] LABS: FREE T4 1.21 NG/DL (0.89-1.76); THYROID STIMULATING HORMONE 4.272 uIU/ML (0.55-4.78); VITAMIN B12 LEVEL 560 PG/ML (211-911)
[2024-04-27 14:06] LABS: TOTAL 25(OH) VITAMIN D 27.3 NG/ML (20.0-100.0)
== END ==
LOC: M PLALAB 09:10
PROVIDERS: ATTEND Internal Medicine Hematology
DX: E03.9 Hypothyroidism, unspecified (principal); K21.9 Gastro-esophageal reflux disease without esophagitis; E78.2 Mixed hyperlipidemia; L57.8 Other skin changes due to chronic exposure to nonionizing radiation; E11.9 Type 2 diabetes mellitus without complications; Z87.891 Personal history of nicotine dependence

== ENCOUNTER → 2024-05-13 | Outpatient (CLI) | payer OTHER | LOC: M RAD 14:21 | PROVIDERS: ATTEND Physician Assistant | DX: G44.321 Chronic post-traumatic headache, intractable (principal); R90.82 White matter disease, unspecified; M47.812 Spondylosis without myelopathy or radiculopathy, cervical region ==

== ENCOUNTER → 2024-06-13 | Outpatient (CLI) | payer OTHER | LOC: M RAD 16:56 | PROVIDERS: ATTEND Internal Medicine Hematology | DX: F17.200 Nicotine dependence, unspecified, uncomplicated (principal); Z53.9 Procedure and treatment not carried out, unspecified reason ==

== ENCOUNTER → 2024-06-28 | Outpatient (CLI) | payer OTHER | LOC: M RAD 09:39 | PROVIDERS: ATTEND Internal Medicine Pulmonary Disease | DX: Z12.2 Encounter for screening for malignant neoplasm of respiratory organs (principal); F17.210 Nicotine dependence, cigarettes, uncomplicated; R91.8 Other nonspecific abnormal finding of lung field; I25.10 Atherosclerotic heart disease of native coronary artery without angina pectoris; K76.0 Fatty (change of) liver, not elsewhere classified; K80.20 Calculus of gallbladder without cholecystitis without obstruction ==

== ENCOUNTER → 2024-07-12 | Outpatient (REF) | payer OTHER ==
[~2024-07-12] MED LIST changes: +SEMA0.257 SQ
[2024-07-13 13:56] LABS: CREATININE, URINE 138.7 MG/DL; MAU/CREAT RATIO 24.5 MCG/MG (0.0-30.0)
[2024-07-13 14:07] LABS: HEMOGLOBIN A1c 6.4 % (4.0-6.0)
== END ==
LOC: M PLALAB 09:41
PROVIDERS: ATTEND Internal Medicine Hematology
DX: E11.9 Type 2 diabetes mellitus without complications (principal)

== ENCOUNTER 2024-07-31 09:24 | Day surgery (SDC) | payer OTHER ==
[~2024-07-31] VITALS: Ht 162.6 cm; Wt 98.0 kg
[~2024-07-31 09:24] MED LIST changes: +LIDOCAINE 2% 100MG/5ML SDV (FOR ANES.) As Ordered ONE; +NS 250 ML IV ONE; +propofoL 200 MG/20 ML VIAL As Ordered ONE
[2024-07-31 11:38] VITALS: TEMP 98
[2024-07-31 11:56] VITALS: BP 148/79; O2SAT 96
== END 2024-07-31 12:01 | disposition home or self-care (01) ==
LOC: M OPP 09:24
PROVIDERS: ATTEND Internal Medicine Gastroenterology
DX: Z12.11 Encounter for screening for malignant neoplasm of colon (principal); D12.4 Benign neoplasm of descending colon; Z86.0100 Personal history of colon polyps, unspecified; E11.9 Type 2 diabetes mellitus without complications; J44.9 Chronic obstructive pulmonary disease, unspecified; E89.0 Postprocedural hypothyroidism; I10 Essential (primary) hypertension; E78.00 Pure hypercholesterolemia, unspecified; Z79.899 Other long term (current) drug therapy; Z79.890 Hormone replacement therapy; Z79.85 Long-term (current) use of injectable non-insulin antidiabetic drugs; E04.2 Nontoxic multinodular goiter; G47.30 Sleep apnea, unspecified; F17.210 Nicotine dependence, cigarettes, uncomplicated; Z90.710 Acquired absence of both cervix and uterus; Z88.0 Allergy status to penicillin; Z88.5 Allergy status to narcotic agent

== ENCOUNTER 2024-11-02 12:21 | Outpatient (RCR) | payer OTHER ==
[~2024-11-02 12:21] MED LIST changes: -LIDOCAINE 2% 100MG/5ML SDV (FOR ANES.) As Ordered ONE; -NS 250 ML IV ONE; -propofoL 200 MG/20 ML VIAL As Ordered ONE
== END 2024-11-03 ==
LOC: M PT 12:21
PROVIDERS: ATTEND Family Medicine
DX: M25.511 Pain in right shoulder (principal); M54.2 Cervicalgia; G44.86 Cervicogenic headache

== ENCOUNTER 2024-11-23 14:15 | Outpatient (RCR) | payer OTHER | END 2024-12-01 | LOC: M PT 14:15 | PROVIDERS: ATTEND Family Medicine | DX: M25.511 Pain in right shoulder (principal); M54.2 Cervicalgia ==

== ENCOUNTER → 2024-11-23 | Outpatient (CLI) | payer OTHER | LOC: M WHC 12:58 | PROVIDERS: ATTEND Family Medicine | DX: E04.2 Nontoxic multinodular goiter (principal); Z90.89 Acquired absence of other organs ==

== ENCOUNTER → 2025-01-30 | Outpatient (REF) | payer OTHER ==
[~2025-01-30] MED LIST changes: -BUPR-597 PO; +BUPR-766 PO
[2025-01-30 18:42] LABS: HEMATOCRIT 44.6 % (36.0-47.0); HEMOGLOBIN 14.7 g/dl (12.0-15.5); MEAN CORPUSCULAR HEMOGLOBIN 31.2 pg (27.0-33.0); MEAN CORPUSCULAR VOLUME 94.7 fl (80.0-96.0); PLATELET COUNT, AUTOMATED 189 10^3/uL (150-450); RED BLOOD COUNT 4.71 10^6/uL (4.00-5.40); WHITE BLOOD COUNT 8.4 10^3/uL (4.0-10.0)
[2025-01-30 18:53] LABS: HEMOGLOBIN A1c 5.2 % (4.0-6.0)
[2025-01-30 19:20] LABS: ALBUMIN 3.7 G/DL (3.2-5.2); ALKALINE PHOSPHATASE 99 U/L (35-104); ALT/SGPT 28 U/L (7.0-40); AST/SGOT 12 U/L (<34); BILIRUBIN,TOTAL 0.5 MG/DL (0.3-1.2); BLOOD UREA NITROGEN 14 MG/DL (9-23); CALCIUM LEVEL 9.8 MG/DL (8.3-10.6); CARBON DIOXIDE LEVEL 29 MMOL/L (20-31); CHLORIDE LEVEL 105 MMOL/L (98-107); CHOLESTEROL LEVEL 185 MG/DL (<200); CHOLESTEROL RISK RATIO 5.64 (<5); CREATININE FOR GFR 0.63 MG/DL (0.55-1.30); GLOMERULAR FILTRATION RATE > 90.0 (>45); GLUCOSE, FASTING 80 MG/DL (74-106); HDL CHOLESTEROL 32.8 MG/DL (>40); LDL CHOLESTEROL 100.4 MG/DL (<100); NON-HDL-C 152.2 MG/DL; POTASSIUM SERUM 3.9 MMOL/L (3.5-5.1); SODIUM LEVEL 142 MMOL/L (136-145); THYROID STIMULATING HORMONE 3.002 uIU/ML (0.55-4.78); TOTAL 25(OH) VITAMIN D 29.1 NG/ML (20.0-100.0); TOTAL PROTEIN 7.2 G/DL (5.7-8.2); TRIGLYCERIDES LEVEL 259 MG/DL (<150)
== END ==
LOC: M LABDRAWP 17:14
PROVIDERS: ATTEND Family Medicine
DX: E03.9 Hypothyroidism, unspecified (principal); G47.33 Obstructive sleep apnea (adult) (pediatric); J44.9 Chronic obstructive pulmonary disease, unspecified; E55.9 Vitamin D deficiency, unspecified; E11.9 Type 2 diabetes mellitus without complications

== ENCOUNTER → 2025-04-09 | Outpatient (CLI) | payer OTHER | LOC: M WHC 12:53 | PROVIDERS: ATTEND Family Medicine | DX: Z12.31 Encounter for screening mammogram for malignant neoplasm of breast (principal); R92.333 Mammographic heterogeneous density, bilateral breasts ==

== ENCOUNTER → 2025-08-08 | Outpatient (CLI) | payer OTHER ==
[~2025-08-08] MED LIST changes: -EZET10TA21 PO; +EZET10TA57 PO
== END ==
LOC: M RAD 16:47
PROVIDERS: ATTEND Internal Medicine Pulmonary Disease
DX: Z87.891 Personal history of nicotine dependence (principal)